=== PATIENT | female | born 1950 | race Asian ===

== ENCOUNTER → 2016-04-19 | Outpatient (CLI) | payer OTHER | LOC: CIMAGING 13:36 | DX: Z12.31 Encounter for screening mammogram for malignant neoplasm of breast (principal) | CPT/HCPCS: G0202 ==

== ENCOUNTER → 2016-06-06 | Outpatient (CLI) | payer MEDICARE, OTHER | LOC: FIMAGING 08:16 | PROVIDERS: ATTEND Family Medicine | DX: E05.90 Thyrotoxicosis, unspecified without thyrotoxic crisis or storm (principal) | CPT/HCPCS: A9516 ==

== ENCOUNTER → 2017-04-27 | Outpatient (CLI) | payer OTHER | LOC: CIMAGING 14:17 | PROVIDERS: ATTEND Family Medicine | DX: Z12.31 Encounter for screening mammogram for malignant neoplasm of breast (principal) ==

== ENCOUNTER 2018-03-01 16:37 | Emergency (ER) | payer OTHER ==
[2018-03-01] MEDS ORDERED: diphenhydrAMINE 25 MG CAP PO ONE ×2 (17:06→17:11)
--- NOTE | 2018-03-01 17:06 | EDPHY ---
H & P Time Seen by Provider: 03/01/18 16:52 HPI/ROS: CHIEF COMPLAINT: Itchy rash History by patient HISTORY OF PRESENT ILLNESS: 67-year-old woman with a history of coronary artery disease on several medications presents complaining of 24 hr of itchy hives which began on her face near her lip and then spread to her trunk and arms. She had a similar reaction 2 weeks ago which resolved after 2 days. Last night when it began she took Benadryl and was able to sleep, but when she awoke the hives had recurred. She tried taking Claritin this morning but it has not helped. She denies any difficulty breathing, wheezing, difficulty swallowing, intraoral lesions or tongue swelling. She denies any prior history of allergies. She has been on the same medicines for at least 4 years. She denies any new exposures to food, detergents, vitamins, supplements or other new exposures. REVIEW OF SYSTEMS: As in HPI, and all other systems reviewed and are negative Smoking Status: Never smoked Physical Exam: General Appearance: Alert, obese, speaking full sentences Head: normocephalic, atraumatic Eyes: Pupils equal and round, reactive to light, no pallor or injection. Mouth: Mucous membranes moist. Oropharynx clear, Neck: No bony tenderness, full range of motion, no stridor Respiratory: Normal, effort, lungs are clear to auscultation. No wheezes, rales or rhonchi. Cardiovascular: Regular rate and rhythm. S1, S2, no murmurs, gallops or rubs appreciated Gastrointestinal: Abdomen is soft and nontender, no masses, bowel sounds normal. Back: No CVA tenderness, no bony tenderness Neurological: Awake, alert and oriented x 3, cranial nerves 2-12 intact, no pronator drift, normal gait, Skin: Warm and dry, urticaria on the face, arms, chest, abdomen and legs, palms clear Musculoskeletal: No deformities or tenderness. Extremities: full range of motion, no edema, DP2+ bilat Psychiatric: Patient has normal affect, there is no agitation. Constitutional: Initial Vital Signs Temperature (C) 37 C 03/01/18 16:44 Heart Rate 118 H 03/01/18 16:44 Respiratory Rate 18 03/01/18 16:44 Blood Pressure 159/110 H 03/01/18 16:44 O2 Sat (%) 98 03/01/18 16:44 O2 Delivery Mode Room Air Allergies/Adverse Reactions: No Known Allergies Allergy (Unverified 03/01/18 16:48) Home Medications: Medication Instructions Recorded Aspirin 03/01/18 EPINEPHrine [Epipen 0.3 MG] 0.3 mg IM ONCE #2 syr 03/01/18 Metformin HCl 03/01/18 Metoprolol Succinate 03/01/18 MDM/Departure - MDM Diagnostics: ECG: Normal sinus rhythm at a rate of 87 with normal axis, normal intervals and no acute ST segment abnormalities. Impression: No acute ischemia. Medications Given: Discontinued Medications Diphenhydramine HCl (Benadryl) 25 mg PO EDNOW ONE Stop: 03/01/18 17:07 Last Admin: 03/01/18 17:08 Dose: 25 mg Diphenhydramine HCl (Benadryl) 25 mg PO EDNOW ONE Stop: 03/01/18 17:12 Last Admin: 03/01/18 17:13 Dose: 25 mg Sodium Chloride (Ns) 1,000 mls @ 0 mls/hr IV ONCE ONE PRN Reason: Wide Open Stop: 03/01/18 17:49 Last Admin: 03/01/18 17:50 Dose: 1,000 mls ED Course/Re-evaluation: 67-year-old woman presents with diffuse urticaria and itching. There is no evidence of airway involvement or significant anaphylaxis. I am recommending cetirizine instead of Claritin and Benadryl at night. I recommend close follow- up with her primary care physician and/or an chisel trimmer. I have written the patient a prescription for an EpiPen we discussed when would be appropriate to use this. 17:45 shortly after patient received her Benadryl and was getting her discharge instructions she stated she felt nauseated vomited and became pale and diaphoretic. Nurse took her blood pressure and it was systolic in the 80s. I re-evaluated the patient she was somewhat pale. She denies any chest pain, pressure or shortness of breath. She was still feeling nauseated. She is placed on the shelter monitor which showed sinus tachycardia rate of 100. ECG showed sinus tachycardia at a rate of 87 with normal axis, normal intervals and no acute ST segment abnormalities. Labs were drawn. Repeat blood pressure was systolic of 126 and a systolic of 117. Patient began to feel slightly better. Some her urticaria improved. We will give her 1 L of normal saline and observe the patient. And re-evaluation the patient was feeling better was essentially asymptomatic. Her blood pressure stabilized and remained within the normal range. Her heart rate continued to be mildly tachycardic in the 100s after about 500 cc of normal saline. Patient's does note that she has not eaten anything today and they were concerned maybe the vomiting was related to taking Benadryl on an empty stomach. We will continue observation and repeat troponin at 3 hours From initial onset of symptoms. 9:15 p.m. repeat troponin was negative and ECG showed sinus tachycardia rate of 103 but was otherwise unchanged. On re-evaluation patient was feeling better although she complained of feeling"restless". Nausea and itching had resolved. Patient's heart rate remained around 100. Blood pressure was stable. She desired to go home. Patient denied any specific complaints other than feeling sleepy and hungry. She confirmed that she has not eaten today. At this point we have ruled out an acute cardiac event. There is no evidence of any infectious symptoms or signs. I discussed return precautions with the patient and her family including but not limited to throat tightening, difficulty breathing, chest pain, more nausea and vomiting, or other concerning symptoms, worsening or changes. They understand and are agreeable to this plan. Total critical care time was 35 min exclusive of procedures and involved multiple re-evaluations the patient with unstable vital signs. - Depart Disposition: Home, Routine, Self-Care Clinical Impression: Urticaria Hypotension Qualifiers: Hypotension type: other hypotension type Qualified Code(s): I95.89 - Other hypotension Condition: Good Instructions: Urticaria (ED) Additional Instructions: You were seen by Dr. Patricia Bueno today. You are having urticaria (hives) which is likely due to an allergic reaction. Take cetirizine (Zyrtec) once daily for itching and hives. If necessary you may take a 2nd dose once a day. You may take diphenhydramine (Benadryl) 50 mg at night if needed for itching and hives. You may also get relief from Aveeno baths. I recommend following up with her primary care physician and/or and chisel trimmer, Dr. Leon, if symptoms persist or reoccur. Return for any worsening or new concerns. Stand Alone Forms: Work Excuse Prescriptions: EPINEPHrine [Epipen 0.3 MG] 0.3 mg IM ONCE #2 syr Referrals: Edu Leon MD [Medical Doctor] - As per Instructions
[2018-03-01] MEDS ORDERED: NS 1,000 ML IV ONE (17:48)
[2018-03-01 21:38] VITALS: BP 102/75
== END 2018-03-01 21:30 | disposition home or self-care (01) ==
LOC: CED 16:37
DX: L50.9 Urticaria, unspecified (principal); I95.89 Other hypotension
CPT/HCPCS: 80053-ER; 84484-ER; 99284-ER

== ENCOUNTER → 2018-06-07 | Outpatient (CLI) | payer OTHER | LOC: CIMAGING 07:08 | PROVIDERS: ATTEND Family Medicine | DX: Z12.31 Encounter for screening mammogram for malignant neoplasm of breast (principal) ==